=== PATIENT | male | born 1970 | race African-American/Black ===

== ENCOUNTER 2017-08-06 17:52 | Inpatient (IN) ==
[2017-08-06] MEDS ORDERED: HYDROmorphone 2 MG/1 ML VIAL IV STA (18:20)
[2017-08-06] MEDS ORDERED: ONDANSETRON 4 MG/2 ML VIAL IV STA (18:20)
[2017-08-06 19:03] LABS: Apearance,Urine CLEAR (Clear); Bilirubin,Urine Negative (Negative); Blood, Urine Small mg/dL (Negative); Glucose,Urine (UA) Negative (Negative); Ketones,Urine Negative (Negative); Nitrite,Urine Negative (Negative); Protein,Urine Negative; RBC,Urine <1 /HPF (0-4); Squamous Epithelial Cell,Urine Occasional /HPF (0-10); Urine Color Yellow (Yellow); Urine Specific Gravity 1.047 (1.001-1.035); Urine Urobilinogen < 2.0 EU/DL (0.2-1.0); WBC,Urine 1 /HPF (0-6)
[2017-08-06] MEDS ORDERED: ONDANSETRON 4 MG/2 ML VIAL IV PRN ×3 (19:23→23:15)
[2017-08-06] MEDS ORDERED: ACETAMINOPHEN 325 MG TABLET PO PRN ×2 (19:23→23:15)
[2017-08-06] MEDS ORDERED: MORPHINE 10 MG/1 ML VIAL IV PRN (19:23)
[2017-08-06] MEDS ORDERED: HYDROmorphone 2 MG/1 ML VIAL ONE (19:33)
[2017-08-06 19:35] LABS: Basophils % 0.2 % (0.0-0.8); Eosinophils % 0.3 % (0.00-10.9); Hematocrit 39.6 VOL% (42.0-52.0); Hemoglobin 12.9 GM/DL (14.0-18.0); Immature Granulocytes % 0.5 %; Immature Granulocytes Absolute 0.05 #; Lymphocytes # 0.7 10*3/uL (1.4-4.0); Mean Corpuscular HGB Conc 32.6 GM/DL (32-36); Mean Corpuscular Hemoglobin 31 PG (27-34); Mean Corpuscular Volume 94.5 FL (87-102); Mean Platelet Volume 10.2 FL (9.6-12.0); Monocytes # 0.4 10*3/uL (0.11-0.8); Monocytes % 4.4 % (1.7-12.7); Neutrophils # 8.2 10*3/uL (1.4-7.4); Neutrophils % 87.6 % (38.7-73.9); Platelet Count 185 T/CUMM (130-400); Red Blood Count 4.19 MC/CUMM (3.8-5.5); Red Cell Distribution Width 12.5 % (9.3-17.3); White Blood Count 9.3 T/CUMM (4-12)
[2017-08-06 20:00] LABS: Albumin 3.6 G/DL (3.4-5.0); Bilirubin,Total 0.9 MG/DL (0.2-1.0); Calcium 8.5 MG/DL (8.5-10.1); Osmolality,Calculated 274.7 MOS/KG (273-304); Potassium 3.7 MMOL/L (3.5-5.1); Total Protein 6.9 G/DL (6.4-8.3)
[2017-08-06] MEDS: DEXTROSE 5% LACTATED RINGERS 1,000 ML IV SCH (22:55)
[2017-08-06] MEDS ORDERED: HYDROmorphone 2 MG/1 ML VIAL IV PRN (23:15)
[2017-08-07] MEDS ORDERED: cefOXitin 1,000 MG in SODIUM CHLORIDE 0.9% 100 ML IV SCH (02:00)
[2017-08-07] MEDS ORDERED: INFLUENZA VIRUS VACCINE 0.5 ML SYRINGE IM ONE (03:12)
[2017-08-07] MEDS: cefOXitin 2,000 MG in SYRINGE 1 EACH IV SCH ×4 (04:18→20:28)
[2017-08-07] MEDS: DEXTROSE 5% NACL 0.45% 1,000 ML IV SCH ×4 (04:28→23:15)
[2017-08-07] MEDS: DEXTROSE 5% LACTATED RINGERS 1,000 ML IV SCH (04:38)
[2017-08-07] MEDS ORDERED: ACETAMINOPHEN 500 MG TABLET PO ONE (05:26)
[2017-08-07] MEDS ORDERED: GABAPENTIN 400 MG CAPSULE PO ONE (05:26)
[2017-08-07] MEDS ORDERED: LIDOCAINE 2%/EPI 20 ML VIAL ONE (07:45)
[2017-08-07] MEDS ORDERED: TISSUE ADHESIVE 1 EACH APPLICATOR TOP ONE (07:46)
[2017-08-07] MEDS ORDERED: PANTOPRAZOLE 40 MG TABLET PO SCH (09:00)
[2017-08-07] MEDS ORDERED: SEVOFLURANE 1 UNIT/15 MINUTE INH ONE (09:38)
[2017-08-07] MEDS ORDERED: PROPOFOL 200 MG/20 ML VIAL IV ONE (09:38)
[2017-08-07] MEDS ORDERED: ALBUMIN 5% 12.5 GM/250 ML VIAL IV ONE (09:38)
[2017-08-07] MEDS ORDERED: GLYCOPYRROLATE 0.4 MG/2 ML VIAL ONE (09:39)
[2017-08-07] MEDS ORDERED: KETOROLAC 30 MG/1 ML VIAL ONE (09:39)
[2017-08-07] MEDS ORDERED: ONDANSETRON 4 MG/2 ML VIAL ONE (09:39)
[2017-08-07] MEDS ORDERED: NEOSTIGMINE 10 MG/10 ML VIAL ONE (09:39)
[2017-08-07] MEDS ORDERED: DEXAMETHASONE 10 MG/1 ML VIAL ONE (09:39)
[2017-08-07] MEDS ORDERED: ROCURONIUM 100 MG/10 ML VIAL IV ONE (09:40)
[2017-08-07] MEDS ORDERED: LACTATED RINGERS 1,000 ML IV ONE (09:40)
[2017-08-07] MEDS ORDERED: SUCCINYLCHOLINE 200 MG/10 ML VIAL ONE (09:40)
[2017-08-07] MEDS: PANTOPRAZOLE 40 MG TABLET PO SCH (11:55)
[2017-08-08] MEDS: cefOXitin 2,000 MG in SYRINGE 1 EACH IV SCH ×4 (02:59→21:19)
[2017-08-08] MEDS: DEXTROSE 5% NACL 0.45% 1,000 ML IV SCH ×4 (06:09→22:38)
[2017-08-08] MEDS: PANTOPRAZOLE 40 MG TABLET PO SCH (10:06)
[2017-08-09] MEDS: cefOXitin 2,000 MG in SYRINGE 1 EACH IV SCH ×2 (02:05→09:41)
[2017-08-09] MEDS: PANTOPRAZOLE 40 MG TABLET PO SCH (09:41)
[2017-08-09] MEDS: DEXTROSE 5% NACL 0.45% 1,000 ML IV SCH ×2 (13:25→16:42)
[2017-08-09] MEDS: CIPROFLOXACIN INJ 400 MG in PREMIX 1 EACH IV SCH (14:15)
[2017-08-10] MEDS: DEXTROSE 5% NACL 0.45% 1,000 ML IV SCH ×2 (00:09→09:28)
[2017-08-10] MEDS: CIPROFLOXACIN INJ 400 MG in PREMIX 1 EACH IV SCH ×2 (02:39→14:02)
[2017-08-10] MEDS: PANTOPRAZOLE 40 MG TABLET PO SCH ×2 (07:30→08:55)
[2017-08-10 08:55] LABS: Basophils % 0.3 % (0.0-0.8); Eosinophils # 0.2 10*3/uL (0.0-0.87); Eosinophils % 2.5 % (0.00-10.9); Hematocrit 35.4 VOL% (42.0-52.0); Hemoglobin 11.4 GM/DL (14.0-18.0); Immature Granulocytes % 0.9 %; Immature Granulocytes Absolute 0.06 #; Lymphocytes # 1.2 10*3/uL (1.4-4.0); Lymphocytes % 17.5 % (21.2-54.2); Mean Corpuscular HGB Conc 32.2 GM/DL (32-36); Mean Corpuscular Hemoglobin 31 PG (27-34); Mean Corpuscular Volume 95.2 FL (87-102); Mean Platelet Volume 10.2 FL (9.6-12.0); Monocytes # 0.8 10*3/uL (0.11-0.8); Monocytes % 11.3 % (1.7-12.7); Neutrophils # 4.6 10*3/uL (1.4-7.4); Neutrophils % 67.5 % (38.7-73.9); Platelet Count 200 T/CUMM (130-400); Red Blood Count 3.72 MC/CUMM (3.8-5.5); Red Cell Distribution Width 12.3 % (9.3-17.3); White Blood Count 6.8 T/CUMM (4-12)
[2017-08-10 09:24] LABS: Calcium 7.7 MG/DL (8.5-10.1); Osmolality,Calculated 273.7 MOS/KG (273-304); Potassium 3.8 MMOL/L (3.5-5.1); Uric Acid 4.6 MG/DL (3.5-7.2)
[2017-08-10] MEDS: DEXAMETHASONE 10 MG/1 ML VIAL IV SCH (14:02)
[2017-08-10 15:17] LABS: Apearance,Urine CLEAR (Clear); Bilirubin,Urine Negative (Negative); Blood, Urine Negative (Negative); Glucose,Urine (UA) Negative (Negative); Ketones,Urine Negative (Negative); Mucus,Urine Occasional /LPF (Occasional); Nitrite,Urine Negative (Negative); Protein,Urine Negative; Squamous Epithelial Cell,Urine Occasional /HPF (0-10); Urine Color Yellow (Yellow); Urine Specific Gravity 1.009 (1.001-1.035); Urine Urobilinogen < 2.0 EU/DL (0.2-1.0); WBC,Urine 1 /HPF (0-6)
[2017-08-10] MEDS: COLCHICINE 0.6 MG TABLET PO SCH (20:37)
[2017-08-11] MEDS: CIPROFLOXACIN INJ 400 MG in PREMIX 1 EACH IV SCH (04:21)
[2017-08-11 08:31] VITALS: BP 133/80
[2017-08-11] MEDS: DEXAMETHASONE 10 MG/1 ML VIAL IV SCH (09:22)
[2017-08-11] MEDS: PANTOPRAZOLE 40 MG TABLET PO SCH (09:22)
[2017-08-11] MEDS: COLCHICINE 0.6 MG TABLET PO SCH (09:22)
== END 2017-08-11 11:15 | disposition home or self-care (01) | DRG 340 ==
LOC: N.ED 17:52 → N.EDINP 18:27 → N.4E 19:30
PROVIDERS: ADMIT Surgery; ATTEND Surgery

== ENCOUNTER 2018-07-20 01:33 | Inpatient (IN) ==
[2018-07-20] MEDS ORDERED: ENOXAPARIN 100 MG/ML SYRINGE SUBCUT STA (02:54)
[2018-07-20 03:12] LABS: Basophils % 0.9 % (0.0-0.8); Eosinophils # 0.1 10*3/uL (0.0-0.87); Eosinophils % 2.9 % (0.00-10.9); Hematocrit 38.9 VOL% (42.0-52.0); Hemoglobin 13.8 GM/DL (14.0-18.0); Immature Granulocytes % 0.6 %; Immature Granulocytes Absolute 0.02 #; Lymphocytes # 1.6 10*3/uL (1.4-4.0); Lymphocytes % 46.6 % (21.2-54.2); Mean Corpuscular HGB Conc 35.5 GM/DL (32-36); Mean Corpuscular Hemoglobin 34 PG (27-34); Mean Corpuscular Volume 94.4 FL (87-102); Mean Platelet Volume 12.5 FL (9.6-12.0); Monocytes # 0.4 10*3/uL (0.11-0.8); Neutrophils # 1.2 10*3/uL (1.4-7.4); Platelet Count 119 T/CUMM (130-400); Red Blood Count 4.12 MC/CUMM (3.8-5.5); Red Cell Distribution Width 12.5 % (9.3-17.3); White Blood Count 3.4 T/CUMM (4-12)
[2018-07-20 03:37] LABS: Eosinophils 2 % (0-10); Lymphocytes 54 % (20-55); Platelet Estimate Decreased; Segmented Neutrophils 32 % (50-85); Total Cells Counted 100
[2018-07-20 03:43] LABS: Alanine Aminotransferase 33 U/L (16-61); Albumin 3.7 G/DL (3.4-5.0); Alkaline Phosphatase 65 U/L (45-117); Aspartate Amino Transferase 39 U/L (0-37); Bilirubin,Total < 0.39 MG/DL (0.2-1.0); Blood Urea Nitrogen 16 MG/DL (7-18); Calcium 8.5 MG/DL (8.5-10.1); Glucose 92 MG/DL (74-106); Osmolality,Calculated 275.7 MOS/KG (273-304); Potassium 3.6 MMOL/L (3.5-5.1); Sodium 138 MMOL/L (136-145); Total Protein 7.1 G/DL (6.4-8.3)
[2018-07-20] MEDS ORDERED: ATORVASTATIN 40 MG TABLET PO STA (04:04)
[2018-07-20] MEDS ORDERED: ONDANSETRON 4 MG/2 ML VIAL IV PRN (04:27)
[2018-07-20] MEDS ORDERED: LORazepam 2 MG/1 ML VIAL IV PRN ×2 (04:31→04:32)
[2018-07-20] MEDS ORDERED: ENOXAPARIN 120 MG/0.8 ML SYRINGE SUBCUT ONE (04:51)
[2018-07-20] MEDS ORDERED: PNEUMOCOCCAL VACCINE (23 VALENT) 0.5 ML VIAL IM ONE (06:06)
[2018-07-20] MEDS ORDERED: INFLUENZA VIRUS VACCINE 0.5 ML SYRINGE IM ONE (06:06)
[2018-07-20] MEDS: SODIUM CHLORIDE 0.9% 1,000 ML IV SCH (06:25)
[2018-07-20 07:14] LABS: Risk Ratio 3.9; VLDL CHOLESTEROL 75.8 MG/DL
[2018-07-20] MEDS: METOPROLOL TARTRATE 25 MG TABLET PO SCH ×2 (09:40→20:56)
[2018-07-20] MEDS: PANTOPRAZOLE 40 MG TABLET PO SCH (09:40)
[2018-07-20] MEDS: ASPIRIN EC 81 MG TABLET PO SCH (09:40)
[2018-07-20] MEDS ORDERED: POTASSIUM CHLORIDE RIDER 10 MEQ in PREMIX 1 EACH IV PRN (14:48)
[2018-07-20] MEDS ORDERED: MAGNESIUM SULF RIDER 2 GM in PREMIX 1 EACH IV PRN (14:48)
[2018-07-20] MEDS ORDERED: TICAGRELOR 90 MG TABLET PO ONE (14:50)
[2018-07-20] MEDS ORDERED: ENOXAPARIN 120 MG/0.8 ML SYRINGE SUBCUT SCH (17:00)
[2018-07-20] MEDS: NITROGLYCERIN 2% OINT 1 INCH/GM PACK TOP SCH (17:25)
[2018-07-20] MEDS: TICAGRELOR 90 MG TABLET PO SCH (20:56)
[2018-07-20] MEDS: ATORVASTATIN 40 MG TABLET PO SCH (20:58)
[2018-07-20] MEDS: MORPHINE 4 MG/1 ML VIAL IV PRN (23:12)
[2018-07-21] MEDS: SODIUM CHLORIDE 0.9% 1,000 ML IV SCH ×3 (00:34→21:51)
[2018-07-21] MEDS: NITROGLYCERIN 2% OINT 1 INCH/GM PACK TOP SCH ×4 (00:36→17:50)
[2018-07-21 05:37] LABS: Basophils % 0.4 % (0.0-0.8); Eosinophils # 0.1 10*3/uL (0.0-0.87); Eosinophils % 1.1 % (0.00-10.9); Hematocrit 37.5 VOL% (42.0-52.0); Hemoglobin 12.1 GM/DL (14.0-18.0); Immature Granulocytes % 0.4 %; Immature Granulocytes Absolute 0.03 #; Lymphocytes # 1.1 10*3/uL (1.4-4.0); Lymphocytes % 14.7 % (21.2-54.2); Mean Corpuscular HGB Conc 32.3 GM/DL (32-36); Mean Corpuscular Hemoglobin 30 PG (27-34); Mean Corpuscular Volume 94.2 FL (87-102); Mean Platelet Volume 10.7 FL (9.6-12.0); Monocytes # 0.8 10*3/uL (0.11-0.8); Monocytes % 10.6 % (1.7-12.7); Neutrophils # 5.5 10*3/uL (1.4-7.4); Neutrophils % 72.8 % (38.7-73.9); Platelet Count 150 T/CUMM (130-400); Red Blood Count 3.98 MC/CUMM (3.8-5.5); Red Cell Distribution Width 12.5 % (9.3-17.3); White Blood Count 7.6 T/CUMM (4-12)
[2018-07-21 06:01] LABS: Calcium 8.1 MG/DL (8.5-10.1); Osmolality,Calculated 277.5 MOS/KG (273-304); Potassium 3.6 MMOL/L (3.5-5.1)
[2018-07-21] MEDS ORDERED: diphenhydrAMINE CAP 25 MG CAPSULE PO ONE (08:52)
[2018-07-21] MEDS ORDERED: DIAZEPAM 5 MG TABLET PO ONE (08:52)
[2018-07-21] MEDS ORDERED: POTASSIUM CHLORIDE RIDER 10 MEQ in PREMIX 1 EACH IV PRN (08:52)
[2018-07-21] MEDS ORDERED: MAGNESIUM SULF RIDER 2 GM in PREMIX 1 EACH IV PRN (08:52)
[2018-07-21] MEDS: PANTOPRAZOLE 40 MG TABLET PO SCH (09:00)
[2018-07-21] MEDS: TICAGRELOR 90 MG TABLET PO SCH ×2 (09:01→21:53)
[2018-07-21] MEDS: METOPROLOL TARTRATE 25 MG TABLET PO SCH ×2 (09:01→21:53)
[2018-07-21] MEDS: ASPIRIN EC 81 MG TABLET PO SCH (09:01)
[2018-07-21] MEDS ORDERED: SODIUM BICARBONATE 2.4 MEQ/5 ML VIAL ONE (09:39)
[2018-07-21] MEDS ORDERED: LIDOCAINE 1% 20 ML VIAL ONE (09:39)
[2018-07-21] MEDS ORDERED: HEPARIN/NACL 0.9% 2 UNITS/ML 1,000 ML IV ONE (09:39)
[2018-07-21] MEDS ORDERED: MIDAZOLAM 2 MG/2 ML VIAL ONE ×4 (09:47→11:09)
[2018-07-21] MEDS ORDERED: fentaNYL 100 MCG/2 ML VIAL ONE ×2 (09:48→10:00)
[2018-07-21] MEDS ORDERED: BIVALIRUDIN 250 MG VIAL IV ONE (10:11)
[2018-07-21] MEDS ORDERED: hydrALAZINE 20 MG/1 ML VIAL ONE (11:26)
[2018-07-21] MEDS ORDERED: ACETAMINOPHEN/CODEINE 300-30 MG TABLET PO PRN (12:01)
[2018-07-21] MEDS: INDOMETHACIN 25 MG CAPSULE PO PRN (13:11)
[2018-07-21] MEDS: ALLOPURINOL 300 MG TABLET PO SCH (13:11)
[2018-07-21] MEDS: MORPHINE 4 MG/1 ML VIAL IV PRN ×2 (16:41→21:55)
[2018-07-21] MEDS: ATORVASTATIN 40 MG TABLET PO SCH (21:53)
[2018-07-21] MEDS: ACETAMINOPHEN 325 MG TABLET PO PRN (22:44)
[2018-07-22] MEDS: NITROGLYCERIN 2% OINT 1 INCH/GM PACK TOP SCH ×4 (00:27→18:11)
[2018-07-22] MEDS: ACETAMINOPHEN 325 MG TABLET PO PRN (05:15)
[2018-07-22 06:13] LABS: Basophils % 0.1 % (0.0-0.8); Eosinophils % 0.1 % (0.00-10.9); Hematocrit 37.3 VOL% (42.0-52.0); Immature Granulocytes % 0.4 %; Immature Granulocytes Absolute 0.03 #; Lymphocytes # 1.1 10*3/uL (1.4-4.0); Lymphocytes % 13.4 % (21.2-54.2); Mean Corpuscular HGB Conc 32.2 GM/DL (32-36); Mean Corpuscular Hemoglobin 30 PG (27-34); Mean Corpuscular Volume 94.2 FL (87-102); Mean Platelet Volume 11.3 FL (9.6-12.0); Monocytes # 1.1 10*3/uL (0.11-0.8); Neutrophils # 5.9 10*3/uL (1.4-7.4); Platelet Count 148 T/CUMM (130-400); Red Blood Count 3.96 MC/CUMM (3.8-5.5); Red Cell Distribution Width 12.4 % (9.3-17.3); White Blood Count 8.1 T/CUMM (4-12)
[2018-07-22 06:34] LABS: Calcium 8.4 MG/DL (8.5-10.1); Potassium 3.4 MMOL/L (3.5-5.1)
[2018-07-22] MEDS: METOPROLOL TARTRATE 25 MG TABLET PO SCH ×2 (08:41→21:15)
[2018-07-22] MEDS: MULTIVITAMIN (CENTRUM) TABLET PO SCH (08:41)
[2018-07-22] MEDS: THIAMINE 100 MG TABLET PO SCH (08:41)
[2018-07-22] MEDS: FOLIC ACID 1 MG TABLET PO SCH (08:41)
[2018-07-22] MEDS: ALLOPURINOL 300 MG TABLET PO SCH (08:41)
[2018-07-22] MEDS: LISINOPRIL 20 MG TABLET PO SCH (08:41)
[2018-07-22] MEDS: PANTOPRAZOLE 40 MG TABLET PO SCH (08:42)
[2018-07-22] MEDS: TICAGRELOR 90 MG TABLET PO SCH ×2 (08:42→21:16)
[2018-07-22] MEDS: ASPIRIN EC 81 MG TABLET PO SCH (08:42)
[2018-07-22] MEDS: INDOMETHACIN 25 MG CAPSULE PO PRN (08:54)
[2018-07-22] MEDS ORDERED: predniSONE 20 MG TABLET PO SCH (10:00)
[2018-07-22 12:55] LABS: Apearance,Urine Slightly Hazy (Clear); Bacteria,Urine Occasional /HPF (Few); Bilirubin,Urine Negative (Negative); Blood, Urine Negative (Negative); Glucose,Urine (UA) Negative (Negative); Ketones,Urine Negative (Negative); Mucus,Urine Occasional /LPF (Occasional); Nitrite,Urine Negative (Negative); Protein,Urine Negative; RBC,Urine 3 /HPF (0-4); Squamous Epithelial Cell,Urine Occasional /HPF (0-10); Urine Color Yellow (Yellow); Urine Specific Gravity 1.033 (1.001-1.035); WBC,Urine 5 /HPF (0-6)
[2018-07-22] MEDS: COLCHICINE 0.6 MG TABLET PO SCH ×2 (13:05→21:15)
[2018-07-22] MEDS: SODIUM CHLORIDE 0.9% 1,000 ML IV SCH (18:10)
[2018-07-22] MEDS: ATORVASTATIN 40 MG TABLET PO SCH (21:15)
[2018-07-23] MEDS: NITROGLYCERIN 2% OINT 1 INCH/GM PACK TOP SCH ×2 (00:07→05:29)
[2018-07-23 05:12] LABS: Basophils % 0.2 % (0.0-0.8); Eosinophils % 0.2 % (0.00-10.9); Hematocrit 34.7 VOL% (42.0-52.0); Hemoglobin 11.1 GM/DL (14.0-18.0); Immature Granulocytes % 0.3 %; Immature Granulocytes Absolute 0.03 #; Lymphocytes % 11.6 % (21.2-54.2); Mean Corpuscular Hemoglobin 30 PG (27-34); Mean Platelet Volume 11.3 FL (9.6-12.0); Monocytes % 11.9 % (1.7-12.7); Neutrophils # 6.6 10*3/uL (1.4-7.4); Neutrophils % 75.8 % (38.7-73.9); Platelet Count 135 T/CUMM (130-400); Red Blood Count 3.69 MC/CUMM (3.8-5.5); Red Cell Distribution Width 12.2 % (9.3-17.3); White Blood Count 8.8 T/CUMM (4-12)
[2018-07-23 05:38] LABS: Osmolality,Calculated 276.5 MOS/KG (273-304); Potassium 3.3 MMOL/L (3.5-5.1)
[2018-07-23] MEDS: POTASSIUM CHLORIDE RIDER 10 MEQ in PREMIX 1 EACH IV PRN ×2 (06:05→09:34)
[2018-07-23] MEDS: ACETAMINOPHEN 325 MG TABLET PO PRN (06:41)
[2018-07-23 08:14] VITALS: BP 144/75
[2018-07-23] MEDS ORDERED: POTASSIUM CHLORIDE 20 MEQ TABLET PO SCH (09:30)
[2018-07-23] MEDS: ALLOPURINOL 300 MG TABLET PO SCH (09:36)
[2018-07-23] MEDS: MULTIVITAMIN (CENTRUM) TABLET PO SCH (09:36)
[2018-07-23] MEDS: ASPIRIN EC 81 MG TABLET PO SCH (09:36)
[2018-07-23] MEDS: PANTOPRAZOLE 40 MG TABLET PO SCH (09:37)
[2018-07-23] MEDS: TICAGRELOR 90 MG TABLET PO SCH (09:37)
[2018-07-23] MEDS: LISINOPRIL 20 MG TABLET PO SCH (09:37)
[2018-07-23] MEDS: COLCHICINE 0.6 MG TABLET PO SCH (09:37)
[2018-07-23] MEDS: THIAMINE 100 MG TABLET PO SCH (09:37)
[2018-07-23] MEDS: METOPROLOL TARTRATE 25 MG TABLET PO SCH (09:38)
[2018-07-23] MEDS: FOLIC ACID 1 MG TABLET PO SCH (09:48)
[2018-07-24] MEDS ORDERED: POTASSIUM CHLORIDE 20 MEQ TABLET PO SCH (09:00)
== END 2018-07-23 11:49 | disposition home or self-care (01) | DRG 247 ==
LOC: EDBD → EDUNIT# → N.ED 01:33 → N.EDINP 01:33 → SUATTDRO 04:27 → N.TELEN 05:32 → SUATTDRO 15:05
PROVIDERS: ADMIT Hospitalist; ATTEND Internal Medicine Cardiovascular Disease
PROC: CLCCHCL (ICD-10-PCS; 2018-07-21 10:45)